=== PATIENT | female | born 1985 | race Hispanic/Latino ===

== ENCOUNTER 2019-06-15 14:32 | Emergency (ER) | payer OTHER, SELFPAY ==
--- NOTE | 2019-06-15 15:36 | ER ---
Nurse's Notes [facility] Name: Indigo Babin Age: 33 yrs Sex: Female : 1985 Arrival Date: 06/15/2019 Time: 14:36 Bed 23 Private MD: Diagnosis: Bronchitis, not specified as acute or chronic;Acute upper respiratory infection, unspecified Presentation: 06/15 14:42 Presenting complaint: Patient states: day started with body aches, chills, a sg cough that was wet and productive with yellow and green sputum, reports having chest congestion and bleeding from the nose intermittently. Transition of care: patient was not received from another setting of care. Onset of symptoms was June 15, 2019. Risk Assessment: Do you want to hurt yourself or someone else? Patient reports no desire to harm self or others. Initial Sepsis Screen: Does the patient meet any 2 criteria? No. Patient's initial sepsis screen is negative. Does the patient have a suspected source of infection? No. Patient's initial sepsis screen is negative. Care prior to arrival: None. 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 - Social history:: Smoking status: unknown. - Ebola Screening: : No symptoms or risks identified at this time. - Family history:: not pertinent. Screenin:11 Abuse screen: Denies threats or abuse. Denies injuries from another. Nutritional mg2 screening: No deficits noted. Tuberculosis screening: No symptoms or risk factors identified. Fall Risk None identified. Assessment: 15:10 General: Appears in no apparent distress. comfortable, Behavior is calm, cooperative. mg2 Pain: Denies pain. Neuro: Level of Consciousness is awake, alert, obeys commands, Oriented to person, place, time, situation. Cardiovascular: Capillary refill < 3 seconds Patient's skin is warm and dry. Respiratory: Reports cough that is Airway is patent Respiratory effort is even, unlabored, Respiratory pattern is regular, symmetrical. GI: No signs and/or symptoms were reported involving the gastrointestinal system. : No signs and/or symptoms were reported regarding the genitourinary system. EENT: Reports nasal congestion. Derm: Skin is intact, is healthy with good turgor, Skin is pink, warm \T\ dry. normal. Musculoskeletal: Circulation, motion, and sensation intact. Capillary refill < 3 seconds. 15:43 Reassessment: Patient appears in no apparent distress at this time. Patient and/or mg2 family updated on plan of care and expected duration. Pain level reassessed. Vital Signs: 14:42 BP 115 / 58; Pulse 87; Resp 16; Temp 97.7; Pulse Ox 98% on R/A; sg 15:43 BP 120 / 78; Pulse 80; Resp 18; Temp 98; Pulse Ox 100% on R/A; mg2 ED Course: 14:36 Patient arrived in ED. mr 14:43 Triage completed. 14:56 Nicolas Muro MD is Attending Physician. [facility] 14:57 Thom Krause, EMILI is Primary Nurse. mg2 15:10 Arm band placed on. mg2 15:11 Patient has correct armband on for positive identification. mg2 15:11 No provider procedures requiring assistance completed. Patient did not have IV access mg2 during this emergency room visit. Administered Medications: 15:41 Drug: Zithromax 500 mg Route: PO; mg2 15:41 Follow up: Response: No adverse reaction; Medication administered at discharge. mg2 Outcome: 15:34 Discharge ordered by . [facility] 15:43 Discharged to home ambulatory, with family. mg2 15:43 Condition: good 15:43 Condition: good 15:43 Discharge instructions given to patient, family, Instructed on discharge instructions, follow up and referral plans. medication usage, Demonstrated understanding of instructions, follow-up care, medications, Prescriptions given X 2. 15:44 Patient left the ED. mg2 Signatures: Robin Esquivel, EMILI MOCK Nicolas Muro MD MD cha Rivera, Mary Thom Krause RN RN mg2
--- NOTE | 2019-06-15 15:36 | EDPHYS ---
Physician Documentation [facility] Name: Indigo Babin Age: 33 yrs Sex: Female : 1985 Arrival Date: 06/15/2019 Time: 14:36 Bed 23 Private MD: ED Physician Nicolas Muro HPI: 06/15 15:31 This 33 yrs old Female presents to ER via Ambulatory with complaints of Flu moisés Symptoms. 15:31 The patient or guardian reports cough, flu symptoms. Onset: The symptoms/episode moisés began/occurred 2 day(s) ago. Modifying factors: The symptoms are alleviated by nothing. the symptoms are aggravated by nothing. Severity of symptoms: At their worst the symptoms were mild, in the emergency department the symptoms are unchanged. Associated signs and symptoms: The patient has no apparent associated signs or symptoms. Severity of symptoms: At their worst the symptoms were mild in the emergency department the symptoms are unchanged. 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 - Social history:: Smoking status: unknown. - Ebola Screening: : No symptoms or risks identified at this time. - Family history:: not pertinent. ROS: 15:31 Constitutional: Negative for fever, chills, and weight loss, Eyes: Negative for injury, moisés pain, redness, and discharge, ENT: Negative for injury, pain, and discharge, Neck: Negative for injury, pain, and swelling, Cardiovascular: Negative for chest pain, palpitations, and edema, Abdomen/GI: Negative for abdominal pain, nausea, vomiting, diarrhea, and constipation, Back: Negative for injury and pain, : Negative for injury, bleeding, discharge, and swelling, MS/Extremity: Negative for injury and deformity, Skin: Negative for injury, rash, and discoloration, Neuro: Negative for headache, weakness, numbness, tingling, and seizure, Psych: Negative for depression, anxiety, suicide ideation, homicidal ideation, and hallucinations, Allergy/Immunology: Negative for hives, rash, and allergies, Endocrine: Negative for neck swelling, polydipsia, polyuria, polyphagia, and marked weight changes, Hematologic/Lymphatic: Negative for swollen nodes, abnormal bleeding, and unusual bruising. 15:31 Respiratory: Positive for cough, "sounds productive". Exam: 15:31 Constitutional: This is a well developed, well nourished patient who is awake, alert, moisés and in no acute distress. Head/Face: Normocephalic, atraumatic. Eyes: Pupils equal round and reactive to light, extra-ocular motions intact. Lids and lashes normal. Conjunctiva and sclera are non-icteric and not injected. Cornea within normal limits. Periorbital areas with no swelling, redness, or edema. ENT: Nares patent. No nasal discharge, no septal abnormalities noted. Tympanic membranes are normal and external auditory canals are clear. Oropharynx with no redness, swelling, or masses, exudates, or evidence of obstruction, uvula midline. Mucous membranes moist. Neck: Trachea midline, no thyromegaly or masses palpated, and no cervical lymphadenopathy. Supple, full range of motion without nuchal rigidity, or vertebral point tenderness. No Meningismus. Chest/axilla: Normal chest wall appearance and motion. Nontender with no deformity. No lesions are appreciated. Cardiovascular: Regular rate and rhythm with a normal S1 and S2. No gallops, murmurs, or rubs. Normal PMI, no JVD. No pulse deficits. Abdomen/GI: Soft, non-tender, with normal bowel sounds. No distension or tympany. No guarding or rebound. No evidence of tenderness throughout. Back: No spinal tenderness. No costovertebral tenderness. Full range of motion. Skin: Warm, dry with normal turgor. Normal color with no rashes, no lesions, and no evidence of cellulitis. MS/ Extremity: Pulses equal, no cyanosis. Neurovascular intact. Full, normal range of motion. Neuro: Awake and alert, GCS 15, oriented to person, place, time, and situation. Cranial nerves II-XII grossly intact. Motor strength 5/5 in all extremities. Sensory grossly intact. Cerebellar exam normal. Normal gait. 15:31 Respiratory: the patient does not display signs of respiratory distress, Respirations: normal, Breath sounds: bronchial sounds, rhonchi, that are mild, are scattered. 15:31 Musculoskeletal/extremity: DVT Exam: No signs of deep vein thrombosis. no pain, no swelling, no tenderness, negative Homans' sign noted on exam, no appreciated bluish discoloration, no erythema, no increased warmth. Vital Signs: 14:42 BP 115 / 58; Pulse 87; Resp 16; Temp 97.7; Pulse Ox 98% on R/A; sg 15:43 BP 120 / 78; Pulse 80; Resp 18; Temp 98; Pulse Ox 100% on R/A; mg2 MDM: 14:57 Patient medically screened. [facility] 15:33 Data reviewed: vital signs, nurses notes, lab test result(s). [facility] 06/15 14:57 Order name: Influenza Screen (a \\T\\ B); Complete Time: 15:31 [facility] Administered Medications: 15:41 Drug: Zithromax 500 mg Route: PO; mg2 15:41 Follow up: Response: No adverse reaction; Medication administered at discharge. mg2 Disposition: 06/15/19 15:34 Discharged to Home. Impression: Bronchitis, not specified as acute or chronic, Acute upper respiratory infection, unspecified. - Condition is Stable. - Discharge Instructions: Acute Bronchitis, Adult, Upper Respiratory Infection, Adult, Cool Mist Vaporizer, Upper Respiratory Infection, Adult, [id number], Cough, Adult. - Prescriptions for Bromfed DM 2- 30-10 mg/5 mL Oral syrup - take 10 milliliter by ORAL route every 4 hours; 160 milliliter. Zithromax Z- Callum 250 mg Oral Tablet - take 1 tablet by ORAL route as directed for 5 days Day 1 - take two (2) tablets one time. Day 2, 3, 4 , 5 take one (1) tablet once daily.; 6 tablet. - Medication Reconciliation Form, Thank You Letter, Antibiotic Education, Prescription Opioid Use form. - Follow up: Private Physician; When: 2 - 3 days; Reason: Recheck today's complaints, Continuance of care, Re-evaluation by your physician. - Problem is new. - Symptoms have improved. Signatures: Dispatcher [employer] Nicolas Hernandez MD MD cha Gardose, Michele, RN RN mg2 Corrections: (The following items were deleted from the chart) 15:44 15:34 06/15/2019 15:34 Discharged to Home. Impression: Bronchitis, not specified as mg2 acute or chronic; Acute upper respiratory infection, unspecified. Condition is Stable. Forms are Medication Reconciliation Form, Thank You Letter, Antibiotic Education, Prescription Opioid Use. Follow up: Private Physician; When: 2 - 3 days; Reason: Recheck today's complaints, Continuance of care, Re-evaluation by your physician. Problem is new. Symptoms have improved. moisés
[2019-06-15] MEDS ORDERED: AZITHROMYCIN 250 MG TAB ONE (15:39)
[2019-06-15 16:04] VITALS: BP 120/78; TEMP 98; O2SAT 100
== END 2019-06-15 15:44 | disposition home or self-care (01) ==
LOC: ER 14:32
DX: J40 Bronchitis, not specified as acute or chronic (principal)
CPT/HCPCS: 87804; 99283